=== PATIENT | male | born 1945 | race Caucasian/White ===

== ENCOUNTER 2016-09-28 10:50 | Emergency (ER) | payer OTHER ==
[2016-09-28 11:06] VITALS: BP 162/83; BMI 31.4
[2016-09-28] MEDS ORDERED: DILAUDID IM ONE (11:08)
--- NOTE | 2016-09-28 11:08 | DR.MBACK ---
HPI - Time Seen Time seen: 11:04 - Complaint Chief Complaint Doctors Comments: Patient presents with complaint of low back and left hip pain for several months that progressive gotten worse. His pain level is 10, severe, worse with movement and chronic. PMH - PMH Past Medical History: Anemia, Diabetes, Dyslipidemia, Hypertension Past Surgical History: Yes Surgical History: Angioplasty/Stents, Joint Replacement, Ortho Surgery - Family History Family Medical History: Diabetes Mellitus, Heart Failure, Hypertension - Social History Do you use any recreational Drugs:: No ROS - Review of Systems Constitutional: No Symptoms Reported Eyes: No Symptoms Reported ENTM: No Symptoms Reported Respiratoy: No Symptoms Reported Cardiovascular: No Symptoms Reported Gastrointestinal/Abdominal: No Symptoms Reported Genitourinary: No Symptoms Reported Neurological: No Symptoms Reported Musculoskeletal: Back, Hip Integumentary: No Symptoms Reported Hematologic/Lymphatic: No Symptoms Reported Endocrine: No Symptoms Reported Psychiatric: No Symptoms Reported All Other Systems: Reviewed and Negative PE - Vital Signs Vitals: Temperature 97.8 F Pulse Rate 72 Respiratory Rate 17 Blood Pressure [Left Arm] 129/61 Blood Pressure [Right Arm] 136/65 Blood Pressure 162/83 O2 Sat by Pulse Oximetry 100 - General General Appearance: Alert - Head Head Exam: Normal Inspection, Atraumatic - Eyes Eye exam: Normal Appearance, PERRL, EOMI - ENT ENT Exam: Normal Exam - Chest Chest Inspection: Normal Inspection - Respiratory Respiratory Exam: Normal Lung Sounds Bilat Respiratory Exam: Bilateral Clear to Auscultation - Cardiovascular Cardiovascular Exam: Regular Rate, Normal Rhythm - Abdominal Exam Abdominal Exam: Normal Inspection Abdominal Tenderness: negative: RUQ, RLQ, LUQ, LLQ, Epigastrium, Suprapubic, Diffuse, Mild, Moderate, Severe, Other - Rectal Rectal Exam: Deferred - Genitourinary Exam: Male: Deferred - Extremities Extremities Exam: Tenderness (left hip) - Back Back Exam: (L) CVA Tenderness, Paraspinal Tenderness - Skin Skin Exam: Warm, Dry, Intact Course - Treatment Treatment: Dilaudid 2mg IM - Reevaluation 1st: Improved ROR - XRAY XRAY Interpreted by: Radiologist (Hip XRay:Stable left hip prosthesis and degenerative changes of the pelvis. CT Lumbar: There is mild lumbar dextroscoliosis. No evidence for acute fracture or subluxation identified. Vertebral body heights are preserved. There is advanced mujltilevel degenerative disc disease, facet arthropathy and dponfylodid eiyh mullevel vacuum phenomenon. Postsurgical changes are noted at L3-L4 compatible with laminectomy. Multilevel bilateral foraminal stenosis is suspected due to the proliferative osteophytosis. 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
[2016-09-28] MEDS ORDERED: DILAUDID INJ ONE (11:22)
--- NOTE | 2016-09-28 12:09 | RAD ---
HISTORY: Pain, fall Study: Two views left hip Comparison: 06/11/2016 Findings: Frontal view of the pelvis shows degenerative changes of the lumbosacral spine and right hip joint. There is an intact left hip hemiarthroplasty. No malalignment or abnormal perihardware lucency ident ified. Vascular calcifications are noted. IMPRESSION: 1. Stable left hip prosthesis and degenerative changes of the pelvis. Reported By:
--- NOTE | 2016-09-28 12:14 | CT ---
HISTORY: Severe pain Study: CT lumbar spine without contrast Comparison: None Technique: Multiple axial images of the lumbar spine were obtained from the thoracolumbar junction to the sacrum without the administration of IV contrast. Sagittal and coronal reformats were perfor med and reviewed. Dose reduction techniques including Automated Exposure Control (AEC) and adjustme nt of mA and kV were utilized. Findings: There is mild lumbar dextroscoliosis. No evidence for acute fracture or subluxation identified. Ve rtebral body heights are preserved. There is advanced multilevel degenerative disc disease, facet ar thropathy and spondylosis with multilevel vacuum phenomenon. Postsurgical changes are noted at L3 an d L4 compatible with laminectomy. Multilevel bilateral foraminal stenosis is suspected due to the p roliferative osteophytosis. The surrounding paraspinous soft tissues are normal in their noncontrast ed appearance. IMPRESSION: 1. Advanced multilevel lumbar degenerative changes as described and previous laminectomy at L3 and L 4. No acute osseous abnormality identified. Reported By:
== END 2016-09-28 13:14 | disposition home or self-care (01) ==
LOC: ER 11:44
DX: M47.16 Other spondylosis with myelopathy, lumbar region (principal)
CPT/HCPCS: 72131; 73501; 96372; 99282; J1170

== ENCOUNTER 2016-12-21 08:01 | Day surgery (SDC) | payer OTHER ==
[2016-12-21] MEDS: TETRACAINE 0.5% OPHTH 1 DOSE AFFEYE ONE ×3 (08:33→12:11)
[2016-12-21] MEDS: VIGAMOX 0.5% OPHTH 1 DOSE AFFEYE ONE ×5 (08:35→12:25)
[2016-12-21] MEDS: PROLENSA OPHTH 1 DOSE AFFEYE ONE (08:47)
[2016-12-21] MEDS: ALPHAGAN-P OPHTH 1 DOSE AFFEYE ONE (08:50)
[2016-12-21] MEDS: MYDRIACIL OPHTH 1 DOSE AFFEYE ONE ×3 (08:52→09:00)
[2016-12-21] MEDS: CYCLOGYL 1% OPHTH 1 DOSE OP ONE ×3 (08:52→09:00)
[2016-12-21] MEDS: AK-DILATE 2.5% OPHTH 1 DOSE OP ONE ×3 (08:52→09:00)
[2016-12-21] MEDS: NS 500 ML IV 500 ML IV ONE (09:20)
[2016-12-21] MEDS ORDERED: DIPRIVAN VIAL ONE (09:24)
[2016-12-21] MEDS: BETADINE OPHTH SOLN 5% EACHEYE ONE (12:00)
[2016-12-21] MEDS: XYLOCAINE-MPF 1% IJ ONE (12:11)
[2016-12-21] MEDS: BSS OPHTH (PLAIN) 500 ML with VANCOMYCIN HCL 500 MG VIAL 25 MG, ADRENALINE CHL INJ 1 MG IR ONE ×3 (12:11)
[2016-12-21] MEDS: DUOVISC IO ONE (12:11)
[2016-12-21] MEDS: ADRENALINE CHL INJ IJ ONE (12:11)
[2016-12-21 13:13] VITALS: BP 188/88
== END 2016-12-21 12:50 | disposition home or self-care (01) ==
LOC: SURG1 08:01
PROVIDERS: ATTEND Ophthalmology
PROC: 08DK3ZZ Extraction of Left Lens, Percutaneous Approach (ICD-10-PCS; principal; 2016-12-21 06:15)
PROC: 08RK3JZ Replacement of Left Lens with Synthetic Substitute, Percutaneous Approach (ICD-10-PCS; principal; 2016-12-21 06:15)
DX: H25.12 Age-related nuclear cataract, left eye (principal); H25.012 Cortical age-related cataract, left eye
CPT/HCPCS: A4217; J0170; J3370; J3490

== ENCOUNTER 2017-01-11 07:38 | Day surgery (SDC) | payer OTHER ==
[~2017-01-11 07:38] MED LIST: TETRACAINE 0.5% OPHTH 1 DOSE AFFEYE ONE; VIGAMOX 0.5% OPHTH 1 DOSE AFFEYE ONE
[2017-01-11] MEDS ORDERED: VIGAMOX 0.5% OPHTH 1 DOSE AFFEYE ONE ×3 (07:41→09:13)
[2017-01-11] MEDS ORDERED: PROLENSA OPHTH 1 DOSE AFFEYE ONE (07:47)
[2017-01-11] MEDS ORDERED: ALPHAGAN-P OPHTH 1 DOSE AFFEYE ONE (07:48)
[2017-01-11] MEDS ORDERED: CYCLOGYL 1% OPHTH 1 DOSE OP ONE ×3 (07:49→07:51)
[2017-01-11] MEDS ORDERED: MYDRIACIL OPHTH 1 DOSE AFFEYE ONE ×3 (07:49→07:51)
[2017-01-11] MEDS ORDERED: AK-DILATE 2.5% OPHTH 1 DOSE OP ONE ×3 (07:49→07:51)
[2017-01-11] MEDS ORDERED: NS 500 ML IV 500 ML IV ONE (07:58)
[2017-01-11] MEDS ORDERED: D5 1/2 NS 1000 ML 1,000 ML IV ONE (08:00)
[2017-01-11] MEDS ORDERED: TETRACAINE 0.5% OPHTH 1 DOSE AFFEYE ONE (09:10)
[2017-01-11] MEDS ORDERED: BETADINE OPHTH SOLN 5% EACHEYE ONE (09:10)
[2017-01-11] MEDS ORDERED: DUOVISC IO ONE ×2 (09:13→09:29)
[2017-01-11] MEDS ORDERED: XYLOCAINE-MPF 1% IJ ONE ×2 (09:13→09:29)
[2017-01-11] MEDS ORDERED: ADRENALINE CHL INJ IJ ONE ×2 (09:13→09:29)
[2017-01-11] MEDS ORDERED: BSS OPHTH (PLAIN) 500 ML with VANCOMYCIN HCL 500 MG VIAL 25 MG, ADRENALINE CHL INJ 1 MG IR ONE ×6 (09:15)
[2017-01-11] MEDS ORDERED: DIPRIVAN VIAL ONE (09:47)
[2017-01-11] MEDS ORDERED: VERSED ONE (09:47)
[2017-01-11 09:54] VITALS: BP 175/78
== END 2017-01-11 09:54 | disposition home or self-care (01) ==
LOC: SURG1 07:38
PROVIDERS: ATTEND Ophthalmology
PROC: 08RJ3JZ Replacement of Right Lens with Synthetic Substitute, Percutaneous Approach (ICD-10-PCS; principal; 2017-01-11 07:30)
PROC: 08DJ3ZZ Extraction of Right Lens, Percutaneous Approach (ICD-10-PCS; principal; 2017-01-11 07:30)
DX: H25.11 Age-related nuclear cataract, right eye (principal); H25.011 Cortical age-related cataract, right eye
CPT/HCPCS: A4222; A4217; J0170; J2250; J3370; J3490; J7042

== ENCOUNTER 2017-11-24 10:02 | Inpatient (IN) ==
[2017-11-24 10:06] VITALS: BMI 32.1
[2017-11-24 11:21] LABS: BASOPHILS # (AUTO) 0.1 X10^3/uL (0.0-0.1); EOSINOPHILS # (AUTO) 0.1 x10^3/uL (0.0-0.2); EOSINOPHILS % (AUTO) 1.4 % (0.9-2.9); HEMATOCRIT 41.5 % (42.0-54.0); HEMOGLOBIN 14.4 g/dL (13.5-18.0); LYMPHOCYTES # (AUTO) 1.6 X10^3/uL (1.3-2.9); LYMPHOCYTES % (AUTO) 15.2 % (21.0-51.0); MEAN CORPUSCULAR HEMOGLOBIN 31.7 pg (27.0-34.0); MEAN CORPUSCULAR HGB CONC 34.7 g/dL (33.0-35.0); MEAN CORPUSCULAR VOLUME 91.4 fL (80.0-100.0); NEUTROPHILS # (AUTO) 7.4 x10^3/uL (2.2-4.8); NEUTROPHILS % (AUTO) 72.4 % (42.0-75.0); PLATELET COUNT 234 X10^3/uL (150.0-450.0); RED BLOOD COUNT 4.53 X10^6/uL (4.7-6.0); RED CELL DISTRIBUTION WIDTH 14.5 % (11.6-16.5); WHITE BLOOD COUNT 10.2 X10^3/uL (3.6-10.0)
--- NOTE | 2017-11-24 11:23 | DR.AMS ---
HPI - PCP Primary Care Physician: ZARINA - Complaint Chief Complaint:: PT'S FAMILY C/O PT HAS BEEN VERY CONFUSED. PT IS VERY ALTERED. PT IS ONLY ORIENTED TO HIS NAME AND BIRTHDAY, BUT IS UNABLE TO ANSWER ANY QUESTIONS CORRECTLY. PT'S FAMILY STATES THESE SYMPTOMS HAS JUST STARTED OVER THE PAST FEW DAYS. - Source History Provided: Patient - Mode of Arrival Mode of Arrival: Ambulatory - Timing Onset of Chief Complaint: 11/21/17 Symptom Onset: Unknown Onset of Symptoms Start Date: 11/21/17 PMH - PMH Past Medical History: Yes Past Medical History: Anemia, Diabetes, Dyslipidemia, Hypertension Past Surgical History: Yes Surgical History: Angioplasty/Stents, Joint Replacement, Ortho Surgery Past Surgical History Comment: UNK - Family History History of Family Medical Conditions: Yes Family Medical History: Diabetes Mellitus, Heart Failure, Hypertension - Social History Does any household member use tobacco: No Alcohol Use: None Do you use any recreational Drugs:: No Lives With: Family Lives Where: Home - infectious screening In the last 2 months have you had wt loss of >10#?: NO Have you had fever, night sweats or hemotysis?: No Have you traveled outside the country in the last 6 months?: No Isolation: Standard PE - Vitals Vital Signs: Temp Pulse Resp BP BP BP Pulse Ox 11/24/17 10:03 97.9 F 95 H 18 155/69 99 01/11/17 09:53 175/78 05/29/16 12:00 136/65 05/26/16 16:00 129/61 ROR - Labs Reviewed Result Diagrams: 11/24/17 10:50 11/24/17 10:50 - Discharge Plan Condition: Stable - Follow ups/Referrals Follow ups/Referrals: WINSOME SRINIVASAN [Primary Care Provider] - 3 days - Instructions
[2017-11-24 11:34] LABS: ALANINE AMINOTRANSFERASE 15 Units/L (12-78); ALBUMIN 3.7 g/dL (3.4-5.0); ALKALINE PHOSPHATASE 126 Units/L (46-116); ASPARTATE AMINO TRANSFERASE 9 Units/L (15-37); BLOOD UREA NITROGEN 28 mg/dL (7-18); CALCIUM 8.5 mg/dL (8.5-10.1); CARBON DIOXIDE 25.1 mmol/L (21-32); CHLORIDE 99 mmol/L (98-107); COR NA(FOR HYPERGLY) 141 mmol/L (136-145); SODIUM 137 mmol/L (136-145); TOTAL PROTEIN 7.6 g/dL (6.4-8.2); eGFR NON BLACK RACES 49 (>60)
[2017-11-24 11:37] LABS: LACTIC ACID 1.5 mmol/L (0.4-2.0)
--- NOTE | 2017-11-24 12:21 | CT ---
History: Altered mental status Study: CT head without contrast. Sagittal and coronal reformations were provided. Comparison: None Findings: The ventricles are mildly enlarged without mass effect. There is moderate periventricular w grupo matter low attenuation. There is no intracranial hemorrhage or mass or edema. The calvarium is i ntact. The left maxillary sinus is opacified. Impression: 1. No acute intracranial disease 2. Atrophy and periventricular white-matter small-vessel disease 3. Opacified left maxillary sinus Reported By:
[2017-11-24 13:22] LABS: BILIRUBIN,URINE 1+ (NEGATIVE); BLOOD/HEMOGLOBIN,URINE 2+ (NEGATIVE); GLUCOSE, URINE 2+ (NEGATIVE); KETONES,URINE 2+ (NEGATIVE); LEUKOCYTE ESTERASE ,URINE 1+ (NEGATIVE); NITRITES,URINE NEGATIVE (NEGATIVE); PROTEIN,URINE 4+ (NEGATIVE); UROBILINOGEN,URINE 1+ (NORMAL)
[2017-11-24 13:34] LABS: APPEARANCE,URINE HAZY (CLEAR); BACTERIA,URINE TRACE /HPF (NEGATIVE); COLOR,URINE AMBER (YELLOW); FINE GRANULAR CASTS,URINE RARE /LPF (NEGATIVE); SQUAMOUS EPITHELIAL CELL,UR RARE /HPF (NEGATIVE)
[2017-11-24 15:46] LABS: FREE T4 (FREE THYROXINE) 1.44 ng/dL (0.76-1.46); TSH (3RD GENERATION) 2.304 uIU/mL (0.358-3.74)
[2017-11-24] MEDS ORDERED: CATAPRES TAB 0.1 MG PO PRN (18:14)
[2017-11-24] MEDS ORDERED: APRESOLINE INJ 20 MG VIAL IVP PRN (18:16)
[2017-11-24] MEDS ORDERED: HumuLIN R ONE (21:46)
[2017-11-24] MEDS: COREG TAB 25 MG PO SCH (21:52)
[2017-11-24] MEDS: HumuLIN R SUBCUT PRN (21:54)
--- NOTE | 2017-11-25 10:11 | MRI ---
History: Altered mental status Technique: MRI of the brain with and without IV contrast. Multiplanar, multi sequence MR imaging of t jeri brain was performed before and after intravenous injection with 20 cc Omniscan. Comparison: Head CT dated 11/24/2017 Findings: There is no restricted diffusion to suggest hyperacute, acute, or early subacute infarct. There is periventricular white matter T2 prolongation with multiple small foci of T2 prolongation wit hin the subcortical and deep white matter. These findings are nonspecific but are consistent with mil d to moderate chronic microangiopathic ischemic white matter disease in a patient of this age. No mas s effect. No abnormal extra-axial fluid collection. There is a generalized prominence of the ventricles, sulci, and cisterns compatible with mild to mode rate generalized generalized volume loss. No evidence of obstructive hydrocephalus. There is mucoperiosteal thickening in the left maxillary sinus. Postcontrast images demonstrate no abnormal parenchymal, leptomeningeal, or parenchymal enhancement. Impression: 1. No acute intracranial abnormality is demonstrated 2. Nonspecific white matter T2 signal hyperintensity as described above, likely representing chronic microangiopathic ischemic white matter disease in a patient of this age 3. Mild to moderate generalized volume loss 4. Left maxillary sinus disease as described. Reported By:
--- NOTE | 2017-11-25 10:40 | VAS ---
Examination: Carotid duplex Doppler ultrasound Clinical History: AMS. Diabetes. Technique: Duplex Doppler ultrasound utilizing hays scale imaging and spectral analysis with color/du plex imaging was used to evaluate the carotid systems bilaterally. Comparison: None available. Findings: Mild atheromatous plaque formation is noted in the carotid systems bilaterally. The following peak systolic velocity measurements were made in cm/s. Right Left Proximal CCA 86.5 126.5 Mid CCA 58.9 79.4 Distal CCA 64.1 69.8 Proximal ICA 93.5 97.9 Mid ICA 93.7 93.7 Distal ICA 76.4 74.0 ECA 80.2 81.2 Vertebral 47.1 59.7 ICA/CCA ratio 1.59 1.23 Peak systolic velocities in the common carotid, internal carotid and external carotid arteries, are w ithin normal limits bilaterally, with no sonographic evidence of a hemodynamically significant stenos is in the carotid systems bilaterally. Normal antegrade flow is demonstrated in the vertebral arteries bilaterally. Impression: 1. There is no sonographic evidence of a hemodynamically significant stenosis in the carotid systems bilaterally. Degree of carotid narrowing is less than 50% by velocity criteria bilaterally. Reported By:
[2017-11-25 14:09] LABS: CALCIUM 7.9 mg/dL (8.5-10.1); CARBON DIOXIDE 26.7 mmol/L (21-32); COR CA(FOR HYPOALB) 8.7 mg/dL (8.5-10.1); CREATININE 1.54 mg/dL (0.70-1.30); TOTAL PROTEIN 6.2 g/dL (6.4-8.2)
[2017-11-25 14:10] LABS: BASOPHILS # (AUTO) 0.1 X10^3/uL (0.0-0.1); BASOPHILS % (AUTO) 0.8 % (0.2-1.0); EOSINOPHILS # (AUTO) 0.2 x10^3/uL (0.0-0.2); EOSINOPHILS % (AUTO) 2.8 % (0.9-2.9); HEMATOCRIT 37.1 % (42.0-54.0); HEMOGLOBIN 12.9 g/dL (13.5-18.0); LYMPHOCYTES # (AUTO) 1.6 X10^3/uL (1.3-2.9); LYMPHOCYTES % (AUTO) 22.5 % (21.0-51.0); MEAN CORPUSCULAR HEMOGLOBIN 31.6 pg (27.0-34.0); MEAN CORPUSCULAR HGB CONC 34.7 g/dL (33.0-35.0); MEAN CORPUSCULAR VOLUME 90.9 fL (80.0-100.0); MEAN PLATELET VOLUME 9.3 fL (7.4-11.0); MONOCYTES # (AUTO) 0.8 x10^3/uL (0.3-0.8); MONOCYTES % (AUTO) 11.7 % (0.0-13.0); NEUTROPHILS # (AUTO) 4.3 x10^3/uL (2.2-4.8); NEUTROPHILS % (AUTO) 62.2 % (42.0-75.0); PLATELET COUNT 167 X10^3/uL (150.0-450.0); RED BLOOD COUNT 4.09 X10^6/uL (4.7-6.0); RED CELL DISTRIBUTION WIDTH 14.4 % (11.6-16.5); WHITE BLOOD COUNT 6.9 X10^3/uL (3.6-10.0)
[2017-11-25] MEDS: HumuLIN R SUBCUT PRN (16:58)
[2017-11-25] MEDS ORDERED: SNACK - Diabetic Appropriate PO SCH (20:00)
[2017-11-25] MEDS: SNACK - Diabetic Appropriate PO SCH (21:49)
[2017-11-25] MEDS: COREG TAB 25 MG PO SCH (22:04)
[2017-11-25] MEDS: COLACE CAP 100 MG PO SCH (22:05)
[2017-11-25] MEDS: LEVEMIR SC SCH (22:05)
[2017-11-25] MEDS: ASPIRIN 81 MG CHEWTAB PO SCH (22:06)
[2017-11-25] MEDS: XANAX PO PRN (23:41)
--- NOTE | 2017-11-26 06:14 | DR.H&P ---
H&P - History & Physical for Day of: H&P Date: 11/24/17 - Chief Complaint Chief Complaint: AMS - History of Present Illness History of Present Illness: 72 WM ER ADMISSION AFTER PRESENTING WITH FAMILY WITH CO AMS. PT FAMILY REPORTS VERY CONFUSED, PT WAS STAYING AT [facility] WITH SPOUSE , WHO IS A PATIENT AT [facility], MR MCKENZIE WAS IN HER HOSPITAL BED AND UNSURE HOW HE ARRIVED AT [facility] OR HOW TO GET HOME. PT FAMILY UNSURE OF EVENTS PRIOR TO ARRIVAL. PT HAS PMH OF HTN, CAD, OA, MDD AND PEGGY. ADMIT TO ICU FOR EVALUATION. - Past Medical History Past Medical History: Anemia, Diabetes, Dyslipidemia, Hypertension - Past Surgical History Surgical History: Angioplasty/Stents, Joint Replacement, Ortho Surgery - Family History Family Medical History: Diabetes Mellitus, Hypertension - Social History Have you used tobacco products in the last 12 months: No Type of Tobacco Use: Cigarettes How many years tobacco product used: 8 Does any household member use tobacco: No Alcohol Use: None Drug Use: None - Medications Home Medications: Ferrous Sulfate 325 mg PO BID 11/24/17 [History Confirmed 11/24/17] Oxybutynin Chloride [Oxybutynin Chloride ER] 5 mg PO DAILY 11/24/17 [History Confirmed 11/24/17] tamsulosin 0.4 mg PO DAILY 11/24/17 [History Confirmed 11/24/17] - Review of Systems Constitutional: Weakness Eyes: No Symptoms Reported ENT: No Symptoms Reported Respiratory: No Symptoms Reported Cardiovascular: Edema Gastrointestinal: No Symptoms Reported Genitourinary: No Symptoms Reported Musculoskeletal: Back Pain Skin: No Symptoms Reported Neurological: Weakness, Confusion - Physical Exam Vital Signs: Temperature 98.4 F Pulse Rate [Apical] 62 Pulse Rate 95 Respiratory Rate 14 Blood Pressure [Left Arm] 129/61 Blood Pressure [Right Arm] 139/68 Blood Pressure 155/69 O2 Sat by Pulse Oximetry 96 Oriented: Person Ear: Normal Nose: Normal Throat: Normal Respiratory: RLL Diminished, LLL Diminished Cardiovascular: Normal, Murmur, Edema (TRACE BILATERAL LOWER EXTREMITY EDEMA) Auscultation: Bowel Sounds: Normal Palpation: Normal Tenderness: Normal Skin: Normal Musculoskeletal: Right, Left, Hip, Back:Thoracic, Back:Lumbar Affect: Anxious Speech Pattern: Clear, Appropriate (APPROPRIATE RESPONSES BUT UNSURE OF EVENTS PRIOR TO ARRIVAL) - Assessment/Plan (1) Altered mental status Status: Acute Plan: ADMIT, ICU, CARDIAC MONITORING. CVA WORK UP, CT HEAD ON ADMISSION, EKG. MRI Q AM, BP AND LIPID CONTROL. VERIFY HOME MEDS, HOLD SEDATIVE MEDICATION AT THIS TIME. CAROTID ARTERY US, STATIN, ASPIRIN (2) Generalized weakness Status: Acute (3) CAD (coronary artery disease) Status: Chronic (4) H/O heart artery stent Status: Chronic (5) Hypertension Qualifiers: Hypertension type: essential hypertension Qualified Code(s): I10 - Essential (primary) hypertension Status: Chronic (6) Hyperlipidemia Qualifiers: Hyperlipidemia type: mixed hyperlipidemia Qualified Code(s): E78.2 - Mixed hyperlipidemia Status: Chronic (7) Degenerative disc disease Status: Chronic (8) Anxiety Status: Chronic (9) Depression Qualifiers: Depression Type: major depressive disorder Major depression recurrence: recurrent Active/Remission status: currently active Major depression episode severity: moderate Qualified Code(s): F33.1 - Major depressive disorder, recurrent, moderate Status: Chronic - Allergies Allergies/Adverse Reactions: Allergies Allergy/AdvReac Type Severity Reaction Status Date / Time No Known Drug Allergies Allergy Verified 11/24/17 10:06
[2017-11-26 06:19] LABS: ALANINE AMINOTRANSFERASE 11 Units/L (12-78); ALBUMIN 3.2 g/dL (3.4-5.0); ALKALINE PHOSPHATASE 107 Units/L (46-116); ASPARTATE AMINO TRANSFERASE 10 Units/L (15-37); BLOOD UREA NITROGEN 36 mg/dL (7-18); CALCIUM 7.9 mg/dL (8.5-10.1); CARBON DIOXIDE 26.9 mmol/L (21-32); CHLORIDE 102 mmol/L (98-107); COR CA(FOR HYPOALB) 8.5 mg/dL (8.5-10.1); COR NA(FOR HYPERGLY) 140 mmol/L (136-145); CREATININE 1.41 mg/dL (0.70-1.30); SODIUM 137 mmol/L (136-145); TOTAL PROTEIN 6.6 g/dL (6.4-8.2); eGFR NON BLACK RACES 53 (>60)
[2017-11-26 06:20] LABS: BASOPHILS # (AUTO) 0.1 X10^3/uL (0.0-0.1); BASOPHILS % (AUTO) 0.8 % (0.2-1.0); EOSINOPHILS # (AUTO) 0.2 x10^3/uL (0.0-0.2); EOSINOPHILS % (AUTO) 3.4 % (0.9-2.9); HEMATOCRIT 39.1 % (42.0-54.0); HEMOGLOBIN 13.4 g/dL (13.5-18.0); LYMPHOCYTES # (AUTO) 1.7 X10^3/uL (1.3-2.9); LYMPHOCYTES % (AUTO) 23.7 % (21.0-51.0); MEAN CORPUSCULAR HEMOGLOBIN 31.4 pg (27.0-34.0); MEAN CORPUSCULAR HGB CONC 34.3 g/dL (33.0-35.0); MEAN CORPUSCULAR VOLUME 91.4 fL (80.0-100.0); MEAN PLATELET VOLUME 9.3 fL (7.4-11.0); MONOCYTES # (AUTO) 0.8 x10^3/uL (0.3-0.8); NEUTROPHILS # (AUTO) 4.3 x10^3/uL (2.2-4.8); NEUTROPHILS % (AUTO) 61.1 % (42.0-75.0); PLATELET COUNT 156 X10^3/uL (150.0-450.0); RED BLOOD COUNT 4.28 X10^6/uL (4.7-6.0); RED CELL DISTRIBUTION WIDTH 14.1 % (11.6-16.5); WHITE BLOOD COUNT 7.1 X10^3/uL (3.6-10.0)
[2017-11-26] MEDS ORDERED: NS 500 ML IV 500 ML IV ONE (06:22)
[2017-11-26] MEDS: ROCEPHIN VIAL 1 GRAM 1 G in NS 100 ML IV + SPIKE MINIBAG* 100 ML IV SCH (06:32)
[2017-11-26] MEDS: LIPITOR TAB 40 MG PO SCH (08:49)
[2017-11-26] MEDS: MILK OF MAGNESIA PO SCH ×2 (08:49→09:42)
[2017-11-26] MEDS: ASPIRIN 81 MG CHEWTAB PO SCH (08:49)
[2017-11-26] MEDS: COREG TAB 25 MG PO SCH ×2 (08:49→22:10)
[2017-11-26] MEDS: HumuLIN R SUBCUT PRN ×2 (11:22→16:11)
--- NOTE | 2017-11-26 12:59 | PCM.PROG ---
Progress Note - Progress Note for Day of Date: 11/26/17 - Subjective Subjective: 72 WM ER ADMISSION WITH AMS ON 11/24 R/O CVA. PT HAD CT HEAD AND MRI WITHOUT CVA FINDINGS. PT IS MORE AWAKE AND ALERT, ORIENTED TO HIMSELF BUT CONTINUES TO BE CONFUSED ABOUT EVENTS LEADING TO HOSPITALIZATION. PT DENIES ANY PAIN THIS AM, CURRENTLY RECEIVING IV ATBX FOR SINUS INFECTION. - Past Medical Family Social History Past Med/Fam/Surg Hx: No changes since H&P Allergies: Allergies No Known Drug Allergies Allergy (Verified 11/24/17 10:06) - Review of Systems ROS: No change since H&P - Vital Signs and I&O's Vital Signs: Temperature 97.0 F Pulse Rate [Apical] 67 Pulse Rate 95 Respiratory Rate 21 Blood Pressure [Left Arm] 129/61 Blood Pressure [Right Arm] 152/70 Blood Pressure 155/69 O2 Sat by Pulse Oximetry 99 Intake and Output: Intake & Output 11/24/17 11/25/17 11/26/17 11/27/17 11:59 11:59 11:59 11:59 Intake Total 580 / 580 795 / 795 Balance 580 / 580 795 / 795 - Physical Exam Oriented: Person Ear: Normal Nose: Normal Throat: Normal Respiratory: Diminished Cardiovascular: Normal, Murmur, Edema (TRACE BILATERAL LOWER EXTREMITY EDEMA) Auscultation: Bowel Sounds: Normal Tenderness: Normal Skin: Normal Musculoskeletal: Right, Left, Hip, Back:Thoracic, Back:Lumbar Affect: Anxious Speech Pattern: Clear - Laboratory and Diagnostics Result Diagrams: 11/26/17 05:41 11/26/17 05:41 Labs: 11/24/17 10:41 Blood Blood Culture - Preliminary 11/24/17 10:50 Blood Blood Culture - Preliminary Laboratory WBC 7.1 X10^3/uL (3.6-10.0) 11/26/17 05:41 RBC 4.28 X10^6/uL (4.7-6.0) L 11/26/17 05:41 Hgb 13.4 g/dL (13.5-18.0) L 11/26/17 05:41 Hct 39.1 % (42.0-54.0) L 11/26/17 05:41 MCV 91.4 fL (80.0-100.0) 11/26/17 05:41 MCH 31.4 pg (27.0-34.0) 11/26/17 05:41 MCHC 34.3 g/dL (33.0-35.0) 11/26/17 05:41 RDW 14.1 % (11.6-16.5) 11/26/17 05:41 Plt Count 156 X10^3/uL (150.0-450.0) 11/26/17 05:41 MPV 9.3 fL (7.4-11.0) 11/26/17 05:41 Neut % (Auto) 61.1 % (42.0-75.0) 11/26/17 05:41 Lymph % (Auto) 23.7 % (21.0-51.0) 11/26/17 05:41 [place] % (Auto) 11.0 % (0.0-13.0) 11/26/17 05:41 Eos % (Auto) 3.4 % (0.9-2.9) H 11/26/17 05:41 Baso % (Auto) 0.8 % (0.2-1.0) 11/26/17 05:41 Neut # (Auto) 4.3 x10^3/uL (2.2-4.8) 11/26/17 05:41 Lymph # (Auto) 1.7 X10^3/uL (1.3-2.9) 11/26/17 05:41 [place] # (Auto) 0.8 x10^3/uL (0.3-0.8) 11/26/17 05:41 Eos # (Auto) 0.2 x10^3/uL (0.0-0.2) 11/26/17 05:41 Baso # (Auto) 0.1 X10^3/uL (0.0-0.1) 11/26/17 05:41 Absolute Nucleated RBC 0.1 /100WBC 11/26/17 05:41 INR Target Range - 11/26/17 05:41 INR 0.99 (0.8-1.3) 11/26/17 05:41 Sodium 137 mmol/L (136-145) 11/26/17 05:41 Corrected Sodium 140 mmol/L (136-145) 11/26/17 05:41 Potassium 4.3 mmol/L (3.5-5.1) 11/26/17 05:41 Chloride 102 mmol/L (98-107) 11/26/17 05:41 Carbon Dioxide 26.9 mmol/L (21-32) 11/26/17 05:41 BUN 36 mg/dL (7-18) H 11/26/17 05:41 Creatinine 1.41 mg/dL (0.70-1.30) H 11/26/17 05:41 Est GFR (MDRD) Af Amer > 60 (>60) 11/26/17 05:41 Est GFR (MDRD) Non-Af 53 (>60) L 11/26/17 05:41 Glucose 212 mg/dL (65-99) H 11/26/17 05:41 POC Glucose (mg/dL) 253 mg/dL (65-99) H 11/25/17 16:25 Lactic Acid 1.5 mmol/L (0.4-2.0) 11/24/17 10:50 Calcium 7.9 mg/dL (8.5-10.1) L 11/26/17 05:41 Corrected Calcium 8.5 mg/dL (8.5-10.1) 11/26/17 05:41 Total Bilirubin 0.60 mg/dL (0.2-1.0) 11/26/17 05:41 AST 10 Units/L (15-37) L 11/26/17 05:41 ALT 11 Units/L (12-78) L 11/26/17 05:41 Alkaline Phosphatase 107 Units/L (46-116) 11/26/17 05:41 Ammonia 10 umol/L (11-32) L 11/24/17 15:25 Total Protein 6.6 g/dL (6.4-8.2) 11/26/17 05:41 Albumin 3.2 g/dL (3.4-5.0) L 11/26/17 05:41 Globulin 3.4 g/dL (2.5-4.5) 11/26/17 05:41 Albumin/Globulin Ratio 0.9 Ratio (1.1-2.1) L 11/26/17 05:41 Vitamin B12 595 pg/mL (193-986) 11/24/17 10:50 Folate 10.8 ng/mL (>8.6) 11/24/17 15:25 Free T4 1.44 ng/dL (0.76-1.46) 11/24/17 10:50 TSH 3rd Generation 2.304 uIU/mL (0.358-3.74) 11/24/17 10:50 Specimen Type Random urine 11/24/17 13:05 Urine Color Megan (YELLOW) 11/24/17 13:05 Urine Appearance Hazy (CLEAR) 11/24/17 13:05 Urine pH 5.0 (5.0 - 8.0) 11/24/17 13:05 Ur Specific [place] 1.020 (1.000-1.030) 11/24/17 13:05 Urine Protein 4+ (NEGATIVE) 11/24/17 13:05 Urine Glucose (UA) 2+ (NEGATIVE) 11/24/17 13:05 Urine Ketones 2+ (NEGATIVE) 11/24/17 13:05 Urine Occult Blood 2+ (NEGATIVE) 11/24/17 13:05 Urine Nitrite Negative (NEGATIVE) 11/24/17 13:05 Urine Bilirubin 1+ (NEGATIVE) 11/24/17 13:05 Urine Urobilinogen 1+ (NORMAL) 11/24/17 13:05 Ur Leukocyte Esterase 1+ (NEGATIVE) 11/24/17 13:05 Urine RBC 3-5 /HPF (NONE SEEN) 11/24/17 13:05 Urine WBC 0-2 /HPF (NONE SEEN) 11/24/17 13:05 Ur Squamous Epith Cells Rare /HPF (NEGATIVE) 11/24/17 13:05 Urine Bacteria Trace /HPF (NEGATIVE) 11/24/17 13:05 Fine Granular Casts Rare /LPF (NEGATIVE) 11/24/17 13:05 Ur Culture Indicated? No/not indicated 11/24/17 13:05 - Plan (1) Altered mental status Status: Acute Plan: CONTINUE CARDIAC MONITORING. CVA WORK UP, CT HEAD ON ADMISSION AND MRI ON 11/25 EKG. BP AND LIPID CONTROL. VERIFY HOME MEDS, HOLD SEDATIVE MEDICATION AT THIS TIME. CAROTID ARTERY US WITHOUT SIGNIFICANT STENOSIS, CONTINUE STATIN, ASPIRIN (2) Generalized weakness Status: Acute (3) CAD (coronary artery disease) Status: Chronic (4) H/O heart artery stent Status: Chronic (5) Hypertension Status: Chronic Qualifiers: Hypertension type: essential hypertension Qualified Code(s): I10 - Essential (primary) hypertension (6) Hyperlipidemia Status: Chronic Qualifiers: Hyperlipidemia type: mixed hyperlipidemia Qualified Code(s): E78.2 - Mixed hyperlipidemia (7) Degenerative disc disease Status: Chronic (8) Anxiety Status: Chronic (9) Depression Status: Chronic Qualifiers: Depression Type: major depressive disorder Major depression recurrence: recurrent Active/Remission status: currently active Major depression episode severity: moderate Qualified Code(s): F33.1 - Major depressive disorder, recurrent, moderate
[2017-11-26] MEDS: XANAX PO PRN (22:10)
[2017-11-26] MEDS: RisperDAL TAB 1 MG PO SCH (22:10)
[2017-11-26] MEDS: SNACK - Diabetic Appropriate PO SCH (22:10)
[2017-11-26] MEDS: NS 1000 ML 1,000 ML IV SCH (22:11)
[2017-11-26] MEDS: LEVEMIR SC SCH (22:11)
[2017-11-26] MEDS: COLACE CAP 100 MG PO SCH (22:11)
[2017-11-27 06:24] LABS: BASOPHILS % (AUTO) 0.7 % (0.2-1.0); EOSINOPHILS # (AUTO) 0.2 x10^3/uL (0.0-0.2); EOSINOPHILS % (AUTO) 3.3 % (0.9-2.9); HEMATOCRIT 37.3 % (42.0-54.0); LYMPHOCYTES # (AUTO) 0.9 X10^3/uL (1.3-2.9); LYMPHOCYTES % (AUTO) 15.1 % (21.0-51.0); MEAN CORPUSCULAR HEMOGLOBIN 31.8 pg (27.0-34.0); MEAN CORPUSCULAR HGB CONC 34.9 g/dL (33.0-35.0); MEAN CORPUSCULAR VOLUME 90.9 fL (80.0-100.0); MEAN PLATELET VOLUME 9.6 fL (7.4-11.0); MONOCYTES # (AUTO) 0.5 x10^3/uL (0.3-0.8); MONOCYTES % (AUTO) 8.2 % (0.0-13.0); NEUTROPHILS # (AUTO) 4.6 x10^3/uL (2.2-4.8); NEUTROPHILS % (AUTO) 72.7 % (42.0-75.0); PLATELET COUNT 137 X10^3/uL (150.0-450.0); RED BLOOD COUNT 4.11 X10^6/uL (4.7-6.0); RED CELL DISTRIBUTION WIDTH 14.3 % (11.6-16.5); WHITE BLOOD COUNT 6.3 X10^3/uL (3.6-10.0)
[2017-11-27 06:59] LABS: ALANINE AMINOTRANSFERASE 12 Units/L (12-78); ALBUMIN 2.9 g/dL (3.4-5.0); ALKALINE PHOSPHATASE 110 Units/L (46-116); ASPARTATE AMINO TRANSFERASE 9 Units/L (15-37); BLOOD UREA NITROGEN 34 mg/dL (7-18); CALCIUM 7.5 mg/dL (8.5-10.1); CARBON DIOXIDE 23.2 mmol/L (21-32); CHLORIDE 104 mmol/L (98-107); COR CA(FOR HYPOALB) 8.4 mg/dL (8.5-10.1); COR NA(FOR HYPERGLY) 141 mmol/L (136-145); SODIUM 138 mmol/L (136-145); TOTAL PROTEIN 6.2 g/dL (6.4-8.2); eGFR NON BLACK RACES 58 (>60)
[2017-11-27] MEDS: MILK OF MAGNESIA PO SCH (08:13)
[2017-11-27] MEDS: ROCEPHIN VIAL 1 GRAM 1 G in NS 100 ML IV + SPIKE MINIBAG* 100 ML IV SCH (08:15)
[2017-11-27] MEDS: ASPIRIN 81 MG CHEWTAB PO SCH (08:16)
[2017-11-27] MEDS: LIPITOR TAB 40 MG PO SCH (08:16)
[2017-11-27] MEDS: COREG TAB 25 MG PO SCH ×2 (08:16→20:33)
[2017-11-27] MEDS: HumuLIN R SUBCUT PRN ×3 (11:08→20:30)
[2017-11-27] MEDS: LEVEMIR SC SCH (20:32)
[2017-11-27] MEDS: RisperDAL TAB 1 MG PO SCH (20:33)
[2017-11-27] MEDS: COLACE CAP 100 MG PO SCH (20:33)
[2017-11-27] MEDS: SNACK - Diabetic Appropriate PO SCH (20:34)
[2017-11-27] MEDS: NS 1000 ML 1,000 ML IV SCH (21:28)
[2017-11-28] MEDS: NS 1000 ML 1,000 ML IV SCH (02:47)
[2017-11-28 06:14] LABS: BASOPHILS % (AUTO) 0.9 % (0.2-1.0); EOSINOPHILS # (AUTO) 0.2 x10^3/uL (0.0-0.2); EOSINOPHILS % (AUTO) 3.6 % (0.9-2.9); HEMATOCRIT 35.6 % (42.0-54.0); HEMOGLOBIN 12.3 g/dL (13.5-18.0); LYMPHOCYTES # (AUTO) 1.4 X10^3/uL (1.3-2.9); LYMPHOCYTES % (AUTO) 29.7 % (21.0-51.0); MEAN CORPUSCULAR HEMOGLOBIN 31.8 pg (27.0-34.0); MEAN CORPUSCULAR HGB CONC 34.7 g/dL (33.0-35.0); MEAN CORPUSCULAR VOLUME 91.8 fL (80.0-100.0); MEAN PLATELET VOLUME 10.2 fL (7.4-11.0); MONOCYTES # (AUTO) 0.5 x10^3/uL (0.3-0.8); MONOCYTES % (AUTO) 11.5 % (0.0-13.0); NEUTROPHILS # (AUTO) 2.6 x10^3/uL (2.2-4.8); NEUTROPHILS % (AUTO) 54.3 % (42.0-75.0); PLATELET COUNT 141 X10^3/uL (150.0-450.0); RED BLOOD COUNT 3.87 X10^6/uL (4.7-6.0); RED CELL DISTRIBUTION WIDTH 13.9 % (11.6-16.5); WHITE BLOOD COUNT 4.7 X10^3/uL (3.6-10.0)
[2017-11-28 06:46] LABS: ALANINE AMINOTRANSFERASE 10 Units/L (12-78); ALBUMIN 2.5 g/dL (3.4-5.0); ALKALINE PHOSPHATASE 97 Units/L (46-116); ASPARTATE AMINO TRANSFERASE 10 Units/L (15-37); BLOOD UREA NITROGEN 24 mg/dL (7-18); CALCIUM 7.3 mg/dL (8.5-10.1); CARBON DIOXIDE 24.8 mmol/L (21-32); CHLORIDE 106 mmol/L (98-107); COR CA(FOR HYPOALB) 8.5 mg/dL (8.5-10.1); COR NA(FOR HYPERGLY) 142 mmol/L (136-145); CREATININE 1.18 mg/dL (0.70-1.30); SODIUM 141 mmol/L (136-145); TOTAL PROTEIN 5.7 g/dL (6.4-8.2); eGFR NON BLACK RACES > 60 (>60)
[2017-11-28] MEDS: ASPIRIN 81 MG CHEWTAB PO SCH (08:08)
[2017-11-28] MEDS: COREG TAB 25 MG PO SCH (08:08)
[2017-11-28] MEDS: LIPITOR TAB 40 MG PO SCH (08:08)
[2017-11-28] MEDS: ROCEPHIN VIAL 1 GRAM 1 G in NS 100 ML IV + SPIKE MINIBAG* 100 ML IV SCH (08:08)
[2017-11-28] MEDS: MILK OF MAGNESIA PO SCH (08:18)
[2017-11-28] MEDS: HumuLIN R SUBCUT PRN (11:47)
--- NOTE | 2017-11-28 11:56 | PCM.PROG ---
Progress Note - Progress Note for Day of Date: 11/27/17 - Subjective Subjective: 72 WM ER ADMISSION WITH AMS ON 11/24 R/O CVA. PT HAD CT HEAD AND MRI WITHOUT CVA FINDINGS. PT IS MORE AWAKE AND ALERT, ORIENTED TO HIMSELF BUT CONTINUES TO BE CONFUSED ABOUT EVENTS LEADING TO HOSPITALIZATION. PT DENIES ANY PAIN THIS AM, CURRENTLY RECEIVING IV ATBX FOR SINUS INFECTION. CONSULT CASE MANAGMENT FOR PLAN DISCHARGE PLAN. - Past Medical Family Social History Past Med/Fam/Surg Hx: No changes since H&P Allergies: Allergies No Known Drug Allergies Allergy (Verified 11/24/17 10:06) - Review of Systems ROS: No change since H&P - Vital Signs and I&O's Vital Signs: Temperature 99.1 F Pulse Rate [Apical] 65 Pulse Rate 95 Respiratory Rate 27 Blood Pressure [Left Arm] 129/61 Blood Pressure [Right Arm] 131/62 Blood Pressure 155/69 O2 Sat by Pulse Oximetry 97 Intake and Output: Intake & Output 11/25/17 11/26/17 11/27/17 11/28/17 11:59 11:59 11:59 11:59 Intake Total 580 / 580 795 / 795 760 / 760 1544 / 1544 Output Total 200 / 200 650 / 650 Balance 580 / 580 795 / 795 560 / 560 894 / 894 - Physical Exam Oriented: Person Ear: Normal Nose: Normal Throat: Normal Respiratory: Diminished Cardiovascular: Normal, Murmur, Edema (TRACE BILATERAL LOWER EXTREMITY EDEMA) Auscultation: Bowel Sounds: Normal Tenderness: Normal Skin: Normal Musculoskeletal: Right, Left, Hip, Back:Thoracic, Back:Lumbar Affect: Anxious Speech Pattern: Clear, Appropriate - Laboratory and Diagnostics Result Diagrams: 11/28/17 04:30 11/28/17 04:30 Labs: 11/24/17 10:41 Blood Blood Culture - Preliminary 11/24/17 10:50 Blood Blood Culture - Preliminary Laboratory WBC 4.7 X10^3/uL (3.6-10.0) 11/28/17 04:30 RBC 3.87 X10^6/uL (4.7-6.0) L 11/28/17 04:30 Hgb 12.3 g/dL (13.5-18.0) L 11/28/17 04:30 Hct 35.6 % (42.0-54.0) L 11/28/17 04:30 MCV 91.8 fL (80.0-100.0) 11/28/17 04:30 MCH 31.8 pg (27.0-34.0) 11/28/17 04:30 MCHC 34.7 g/dL (33.0-35.0) 11/28/17 04:30 RDW 13.9 % (11.6-16.5) 11/28/17 04:30 Plt Count 141 X10^3/uL (150.0-450.0) L 11/28/17 04:30 MPV 10.2 fL (7.4-11.0) 11/28/17 04:30 Neut % (Auto) 54.3 % (42.0-75.0) 11/28/17 04:30 Lymph % (Auto) 29.7 % (21.0-51.0) 11/28/17 04:30 Clinch % (Auto) 11.5 % (0.0-13.0) 11/28/17 04:30 Eos % (Auto) 3.6 % (0.9-2.9) H 11/28/17 04:30 Baso % (Auto) 0.9 % (0.2-1.0) 11/28/17 04:30 Neut # (Auto) 2.6 x10^3/uL (2.2-4.8) 11/28/17 04:30 Lymph # (Auto) 1.4 X10^3/uL (1.3-2.9) 11/28/17 04:30 Clinch # (Auto) 0.5 x10^3/uL (0.3-0.8) 11/28/17 04:30 Eos # (Auto) 0.2 x10^3/uL (0.0-0.2) 11/28/17 04:30 Baso # (Auto) 0.0 X10^3/uL (0.0-0.1) 11/28/17 04:30 Absolute Nucleated RBC 0.1 /100WBC 11/28/17 04:30 INR Target Range - 11/26/17 05:41 INR 0.99 (0.8-1.3) 11/26/17 05:41 Sodium 141 mmol/L (136-145) 11/28/17 04:30 Corrected Sodium 142 mmol/L (136-145) 11/28/17 04:30 Potassium 3.9 mmol/L (3.5-5.1) 11/28/17 04:30 Chloride 106 mmol/L (98-107) 11/28/17 04:30 Carbon Dioxide 24.8 mmol/L (21-32) 11/28/17 04:30 BUN 24 mg/dL (7-18) H 11/28/17 04:30 Creatinine 1.18 mg/dL (0.70-1.30) 11/28/17 04:30 Est GFR (MDRD) Af Amer > 60 (>60) 11/28/17 04:30 Est GFR (MDRD) Non-Af > 60 (>60) 11/28/17 04:30 Glucose 131 mg/dL (65-99) H 11/28/17 04:30 POC Glucose (mg/dL) 253 mg/dL (65-99) H 11/25/17 16:25 Lactic Acid 1.5 mmol/L (0.4-2.0) 11/24/17 10:50 Calcium 7.3 mg/dL (8.5-10.1) L 11/28/17 04:30 Corrected Calcium 8.5 mg/dL (8.5-10.1) 11/28/17 04:30 Total Bilirubin 0.30 mg/dL (0.2-1.0) 11/28/17 04:30 AST 10 Units/L (15-37) L 11/28/17 04:30 ALT 10 Units/L (12-78) L 11/28/17 04:30 Alkaline Phosphatase 97 Units/L (46-116) 11/28/17 04:30 Ammonia 10 umol/L (11-32) L 11/24/17 15:25 Total Protein 5.7 g/dL (6.4-8.2) L 11/28/17 04:30 Albumin 2.5 g/dL (3.4-5.0) L 11/28/17 04:30 Globulin 3.2 g/dL (2.5-4.5) 11/28/17 04:30 Albumin/Globulin Ratio 0.8 Ratio (1.1-2.1) L 11/28/17 04:30 Vitamin B12 595 pg/mL (193-986) 11/24/17 10:50 Folate 10.8 ng/mL (>8.6) 11/24/17 15:25 Free T4 1.44 ng/dL (0.76-1.46) 11/24/17 10:50 TSH 3rd Generation 2.304 uIU/mL (0.358-3.74) 11/24/17 10:50 Specimen Type Random urine 11/24/17 13:05 Urine Color Megan (YELLOW) 11/24/17 13:05 Urine Appearance Hazy (CLEAR) 11/24/17 13:05 Urine pH 5.0 (5.0 - 8.0) 11/24/17 13:05 Ur Specific [place] 1.020 (1.000-1.030) 11/24/17 13:05 Urine Protein 4+ (NEGATIVE) 11/24/17 13:05 Urine Glucose (UA) 2+ (NEGATIVE) 11/24/17 13:05 Urine Ketones 2+ (NEGATIVE) 11/24/17 13:05 Urine Occult Blood 2+ (NEGATIVE) 11/24/17 13:05 Urine Nitrite Negative (NEGATIVE) 11/24/17 13:05 Urine Bilirubin 1+ (NEGATIVE) 11/24/17 13:05 Urine Urobilinogen 1+ (NORMAL) 11/24/17 13:05 Ur Leukocyte Esterase 1+ (NEGATIVE) 11/24/17 13:05 Urine RBC 3-5 /HPF (NONE SEEN) 11/24/17 13:05 Urine WBC 0-2 /HPF (NONE SEEN) 11/24/17 13:05 Ur Squamous Epith Cells Rare /HPF (NEGATIVE) 11/24/17 13:05 Urine Bacteria Trace /HPF (NEGATIVE) 11/24/17 13:05 Fine Granular Casts Rare /LPF (NEGATIVE) 11/24/17 13:05 Ur Culture Indicated? No/not indicated 11/24/17 13:05 - Plan (1) Altered mental status Status: Acute Plan: CONTINUE CARDIAC MONITORING. CVA WORK UP, CT HEAD ON ADMISSION AND MRI ON 11/25 EKG. BP AND LIPID CONTROL. VERIFY HOME MEDS, HOLD SEDATIVE MEDICATION AT THIS TIME. CAROTID ARTERY US WITHOUT SIGNIFICANT STENOSIS, CONTINUE STATIN, ASPIRIN (2) Generalized weakness Status: Acute (3) CAD (coronary artery disease) Status: Chronic (4) H/O heart artery stent Status: Chronic (5) Hypertension Status: Chronic Qualifiers: Hypertension type: essential hypertension Qualified Code(s): I10 - Essential (primary) hypertension (6) Hyperlipidemia Status: Chronic Qualifiers: Hyperlipidemia type: mixed hyperlipidemia Qualified Code(s): E78.2 - Mixed hyperlipidemia (7) Degenerative disc disease Status: Chronic (8) Anxiety Status: Chronic (9) Depression Status: Chronic Qualifiers: Depression Type: major depressive disorder Major depression recurrence: recurrent Active/Remission status: currently active Major depression episode severity: moderate Qualified Code(s): F33.1 - Major depressive disorder, recurrent, moderate
[2017-11-28 13:58] VITALS: BP 121/88
== END 2017-11-28 17:00 | disposition home health service (06) | DRG 153 ==
LOC: ER 10:11 → ICU 14:23
PROVIDERS: ADMIT Internal Medicine; ATTEND Internal Medicine
DX: E78.2 Mixed hyperlipidemia; I10 Essential (primary) hypertension; R41.82 Altered mental status, unspecified; R53.1 Weakness; J01.80 Other acute sinusitis; R94.31 Abnormal electrocardiogram [ECG] [EKG]; I50.9 Heart failure, unspecified; E11.65 Type 2 diabetes mellitus with hyperglycemia; I25.10 Atherosclerotic heart disease of native coronary artery without angina pectoris; F33.1 Major depressive disorder, recurrent, moderate; F41.8 Other specified anxiety disorders; R26.89 Other abnormalities of gait and mobility; N40.0 Benign prostatic hyperplasia without lower urinary tract symptoms; M19.90 Unspecified osteoarthritis, unspecified site
CPT/HCPCS: 36415; 70450; 70553; 80053; 81001; 82140; 82607; 82746; 83605; 84439; 84443; 85025; 85610; 87040; 93005; 93010; 93880; 96365; 97110; 97163; 97166; 99284; A4222; G0378; J0360; J0696; J1815; J7030; J7040; J7050